=== PATIENT | male | born 1985 | race Caucasian/White ===

== ENCOUNTER 2024-02-05 06:05 | Emergency (ER) | payer OTHER, SELFPAY ==
[2024-02-05 06:07] VITALS: BP 236/140
[2024-02-05 06:16] VITALS: BMI 35.0
[2024-02-05 06:19] VITALS: BP 225/117
[2024-02-05 06:40] LABS: % Basophils 0.5 % (0-2); % Eosinophils 0.7 % (0-6); % Immature Granulocytes 0.5 % (0-0.5); % Lymphocytes 14.4 % (20.5-51.1); % Monocytes 9.3 % (1.7-9.3); % Neutrophils 74.6 % (42.2-75.2); Absolute Eosinophils 0.1 10^3/uL (0-0.7); Absolute Lymphocytes 1.1 10^3/uL (1.2-3.4); Absolute Monocytes 0.7 10^3/uL (0.1-0.6); Absolute Neutrophils 5.7 10^3/uL (1.4-6.5); Hematocrit 42.1 % (39.0-52.0); Hemoglobin 15.4 g/dL (13.0-18.0); Mean Corp Hgb Conc. 36.6 g/dL (33.0-37.0); Mean Corpuscular Hgb 32.8 pg (27.0-31.0); Mean Corpuscular Volume 89.8 fL (80.0-94.0); Mean Platelet Volume 10.3 fL (7.4-10.4); Nucleated Red Blood Cells % 0 % (-); Platelet Count 199 10^3/uL (130-400); Red Blood Cell Count 4.69 10^6/uL (4.70-6.10); Red Cell Dist. Width 11.9 % (11.5-14.5); White Blood Cell Count 7.7 10^3/uL (4.8-10.8)
[2024-02-05] MEDS: ZESTRIL 20 MG PO (06:47)
[2024-02-05] MEDS: ORETIC 25 MG PO (06:48)
[2024-02-05 06:51] LABS: ALT (SGPT) 29 U/L (0-50); AST (SGOT) 29 U/L (17-59); Albumin 4.8 g/dl (3.5-5.0); Alkaline Phosphatase 75 U/L (38-126); Blood Urea Nitrogen 13 mg/dl (9-20); Calcium 9.8 mg/dl (8.4-10.2); Carbon Dioxide 25 mmol/L (22-30); Chloride 102 mmol/L (98-107); Estimated Creatinine Clearance > 125 ml/min; Glucose 120 mg/dl (70-99); Sodium 137 mmol/L (135-145); Total Bilirubin 1.4 mg/dl (0.2-1.3); Total Protein 8.1 g/dl (6.3-8.2); eGFR > 60.00
[2024-02-05 07:00] VITALS: BP 216/122
[2024-02-05 07:22] VITALS: BP 217/125
--- NOTE | 2024-02-05 07:53 | ED.GENMED ---
Addendum entered and electronically signed by Taylor Cohen MD 02/05/24 10:38:
Pressure improved to 190/100s. Patient remains asymptomatic. There is no sign of hypertensive urgency or emergency. I discussed the importance with the patient to keep taking his blood pressure medication and explained it could easily cause to
heart disease, heart failure and stroke
Original Note:
History of Present Illness
General
Chief Complaint: Musculo-Skeletal Complaint
Source: patient
Exam Limitations: none
Time Seen by Provider: 02/05/24 07:02
Nursing documentation reviewed up to this point in time: agreed with
Travel History
Have you had any contact with someone who has COVID-19?: No
Do you have any symptoms of coronavirus? Fever > 100 degrees, chills, cough, shortness of breath, sore throat, loss of taste or smell, muscle aches, or headache?: No
History of Present Illness
History of Present Illness:
The patient is a 38-year-old man with a past medical history of high blood pressure who reports several days of left ankle swelling. Patient reports that he recurrently gets swelling in the left ankle, about once a year, and gets steroids which
improves his symptoms. He denies fever. He reports that his symptoms are worse in the left ankle than they are today. In addition, patient reports that he is not taking any of his blood pressure medications in at least 2 weeks. He denies chest
pain, shortness of breath, headache, vision changes and dizziness. Patient has no other complaints except mild discomfort in his left ankle. Patient reports he does not have a primary care doctor. He has been given [facility]
information in the past. He reports he now has health insurance.
Past History
Past History
ED Past Medical History: HTN
ED Past Surgical History: Other
Social History
Tobacco: Non-smoker
Alcohol: Daily
Drug: None
Personal: Single
Living: other
Employment: Other
Family History
Family History: Other
Review of Systems
Review of Systems
All Other Systems: ROS reviewed and negative except as documented in HPI and ROS
Constitutional: Reports no symptoms
EENT: Reports no symptoms
Respiratory: Reports no symptoms
Cardiac: Reports no symptoms
ABD/GI: Reports no symptoms
: Reports no symptoms
Musculoskeletal: Reports joint pain and joint swelling
Skin: Reports no symptoms
Neurological: Reports no symptoms
Endocrine: Reports no symptoms
Hematologic/Lymphatic: Reports no symptoms
Psychiatric: Reports no symptoms
Phy Exam
Physical Exam
Physical Exam:
Physical Exam
General: no apparent distress, not acutely ill. Patient looks sunburn on entire face
Neck: supple. no meningeal signs. normal posterior pharynx
Heart: s1/s2 regular rate and rhythm, no murmur. equal radial pulses.
Lungs: no acute respiratory distress. clear bilaterally
Abdomen: normal bowel sounds. not tender. no CVAT
Neuro: alert and orientedx3. no focal neurological deficits. Cranial nerves equal and symmetric bilaterally. 5 out of 5 strength in all extremities. Steady gait.
Skin: Mild erythema and warmth of lateral left ankle. No extension of erythema outside of ankle area.
Psychiatric: well kept. interactive and cooperative
Extremities: Mild nonpitting edema of left lateral ankle with mild soft tissue tenderness. Patient able to fully flex and extend left ankle with minimal pain.
Course
Orders/Labs/Results
Orders:
Orders
02/05/24 06:22
EKG [Electrocardiogram (*1)] Urgent
Reason for Study: Hypertension, Benign
02/05/24 06:23
EKG- Treatment ONCE
02/05/24 06:29
Complete Blood Count/With Diff Urgent
Comprehensive Metabolic Panel Urgent
Uric Acid Urgent
Comment: ADD ON
02/05/24 06:42
Lisinopril [Zestril] 20 mg PO NOW STA
02/05/24 06:43
Hydrochlorothiazide [Oretic] 25 mg PO NOW STA
02/05/24 08:03
Add On- LAB Urgent
Tests Added?: uric acid
Prednisone [Deltasone] 40 mg PO NOW STA
02/05/24 08:04
Ketorolac [Toradol] 30 mg IV NOW STA
Abnormal Lab Results
02/05/24
06:29
RBC 4.69 L 10^6/uL
(4.70-6.10)
MCH 32.8 H pg
(27.0-31.0)
Absolute Lymphs (auto) 1.1 L 10^3/uL
(1.2-3.4)
Absolute Monos (auto) 0.7 H 10^3/uL
(0.1-0.6)
Lymphocytes % 14.4 L %
(20.5-51.1)
Glucose 120 H mg/dl
(70-99)
Total Bilirubin 1.4 H mg/dl
(0.2-1.3)
02/05/24 06:29
02/05/24 06:29
Vital Signs
Initial and Last Documented VS:
Initial Vital Signs
Temp Pulse Resp BP Pulse Ox
97.8 F 96 24 236/140 100
02/05/24 06:07 02/05/24 06:07 02/05/24 06:07 02/05/24 06:07 02/05/24 06:07
Last Documented Vital Signs
Temp Pulse Resp BP Pulse Ox
97.8 F 84 13 190/105 97
02/05/24 06:07 02/05/24 09:00 02/05/24 08:15 02/05/24 09:00 02/05/24 08:15
MDM/Problems Addressed
Differential Diagnosis Includes:
Gouty arthritis of left ankle, septic joint of left ankle, uncontrolled hypertension, hypertensive urgency
MDM/Problems Addressed:
Patient presents with acute on chronic hypertension and acute left ankle pain and swelling
Chronic conditions affecting care: HTN
Acute Exacerbation and/or Progression of Chronic Illness:
Patient has acutely elevated high blood pressure due to poor compliance
Acute Exacerbation and/or Progression of Chronic Illness: HTN
*Pulse Oximetry
Patient hypoxic: no
*EKG
Interpreted by ED Provider?: Yes
Interpretation: abnormal
Comparison EKG: no changes
Rate: normal
Rhythm: sinus
[place]: normal axis
Interval: normal interval
QRS Pattern: left vent hypertrophy
Ischemia: non-specific ST changes
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
Rate: normal
Interpretation: normal
Rhythm: sinus
*Critical Care Note
Total Time (30-74mins, 75-104mins- exclusive of procedures): Not Applicable
Data Reviewed
Review of Other/Old Records Reveals: Testing (Recent prior EKG shows ST changes and LVH)
Source: patient
Patient Management
Discussion with other providers: Other (Discussed case with Gissell Paige via [facility] text who assures me that she will help arrange for patient to have PCP follow-up)
ED Attending Note
-
Portions of this chart may have been created with voice recognition software.� Occasional wrong word or��sound alike� substitutions may have occurred due to the inherent limitations of voice recognition software.
Discharge Plan
Departure
Patient Disposition: Home (Routine Discharge)
Date of Disposition: 02/05/24
Time of Disposition: 09:22
Patient with high blood pressure during this ER visit?: Yes
Condition: Good
Covid-19: Not Applicable
Discharge Problem:
High blood pressure, Gouty arthritis
Instructions: Low Purine Diet, Gout ED, BLOOD PRESSURE
Prescriptions:
New
prednisone 20 mg tablet
20 mg PO DAILY 6 Days Qty: 6 0RF
lisinopril 20 mg tablet
20 mg PO DAILY 30 Days Qty: 30 0RF
hydrochlorothiazide 25 mg tablet
25 mg PO DAILY Qty: 30 0RF
Referrals:
NONE,* [Family Provider] -
Activity Restrictions/Additional Instructions:
It is extremely important that you take your blood pressure medication as prescribed. Please return if you develop any chest pain, shortness of breath, vision changes or severe headache. It is also important that you follow-up with a primary care
doctor within 1 week to have your blood pressure rechecked. Please also return if you develop any worsening redness of the left ankle or any fever.
Interventions
Interventions:
*Risk Screen - Suicide Last Done: 02/05/24 06:07
*General Assessment Last Done: 02/05/24 06:16
*Neglect/Abuse Screening Last Done: 02/05/24 06:07
ED- Fall Risk Assessment Last Done: 02/05/24 09:39
*ED COVID-19 Vaccine History Last Done: 02/05/24 09:39
*Nursing Disposition Last Done: 02/05/24 09:39
ED- Cardiac Assessment Last Done: 02/05/24 06:33
ED-Musculoskeletal Assessment Last Done: 02/05/24 06:33
ED- Neurological Assessment Last Done: 02/05/24 06:33
ED- Pulmonary Assessment Last Done: 02/05/24 06:33
Discharge Date and Time
Discharge Date/Time: 02/05/24 09:42
Print Language: AUSTRIAN
[2024-02-05 08:00] VITALS: BP 219/117
[2024-02-05] MEDS: DELTASONE 40 MG PO (08:21)
[2024-02-05] MEDS: TORADOL 30 MG IV (08:22)
[2024-02-05 09:00] VITALS: BP 190/105
[2024-02-05 10:16] LABS: Uric Acid 8.4 mg/dl (3.5-8.5)
== END 2024-02-05 09:42 | disposition home or self-care (01) ==
LOC: EMR 06:05
PROVIDERS: EMERGENCY PHYSICIAN Emergency Medicine
DX: M25.572 Pain in left ankle and joints of left foot (principal); M25.472 Effusion, left ankle; M10.9 Gout, unspecified; I10 Essential (primary) hypertension; Z86.16 Personal history of COVID-19; Z91.013 Allergy to seafood; Z91.018 Allergy to other foods
CPT/HCPCS: 99284; 96374; 80053; 84550; 85025; 93005